=== PATIENT | female | born 1960 | race Caucasian/White ===

== ENCOUNTER 2016-10-29 21:26 | Emergency (ER) | payer MEDICARE, MEDICAID ==
[~2016-10-29] VITALS: Ht 160 cm; Wt 53.0 kg
[2016-10-29] MEDS ORDERED: LORazepam 1 MG TABLET PO ONE (22:15)
[2016-10-29 23:21] VITALS: BP 145/87
== END 2016-10-29 23:29 | disposition home or self-care (01) ==
LOC: EMS 21:29
DX: L03.115 Cellulitis of right lower limb (principal); L03.116 Cellulitis of left lower limb; F17.210 Nicotine dependence, cigarettes, uncomplicated; Z88.1 Allergy status to other antibiotic agents
CPT/HCPCS: 99283; 99406